=== PATIENT | female | born 1985 | race Caucasian/White ===

== ENCOUNTER 2021-08-16 07:53 | Emergency (ER) | payer OTHER ==
[~2021-08-16 07:53] MED LIST: AMOXICILLIN875 MG PO; BENTYL 20MG TAB20 MG PO; FLEXERIL 10 MG10 MG PO; IBUPROFEN800 MG PO; NAPROSYN500 MG PO; PHENERGAN 25 MG25 M1 PO; ZOFRAN4 MG PO
[2021-08-16 08:32] LABS: HEMOGLOBIN 15.2 gm/dl (12.3-15.3); RED BLOOD COUNT 5.27 M/UL (4.00-5.10); WHITE BLOOD COUNT 12.3 K/UL (4.5-11.0)
[2021-08-16 09:06] LABS: BUN/CREATININE RATIO 16 (0-10)
[2021-08-16] MEDS ORDERED: ONDANSETRON ODT4 MG PO (12:06)
== END 2021-08-16 12:14 | disposition home or self-care (01) ==
LOC: ER1 07:53
PROVIDERS: Nurse Practitioner
DX: R10.9 Unspecified abdominal pain (principal); R11.2 Nausea with vomiting, unspecified; Z88.2 Allergy status to sulfonamides; R10.813 Right lower quadrant abdominal tenderness; R10.814 Left lower quadrant abdominal tenderness; Z20.822 Contact with and (suspected) exposure to COVID-19
CPT/HCPCS: 0240U; 80053; 81001; 82150; 82550; 82553; 83690; 84484; 85025; 93005; 96374; 96375; 99284; J2270; J2405; J7030; Q9967

== ENCOUNTER 2021-09-20 21:53 | Emergency (ER) | payer OTHER ==
[~2021-09-20 21:53] MED LIST changes: +ONDANSETRON ODT4 MG PO
[2021-09-20 22:58] LABS: HEMOGLOBIN 14.4 gm/dl (12.3-15.3); RED BLOOD COUNT 4.88 M/UL (4.00-5.10); WHITE BLOOD COUNT 11.9 K/UL (4.5-11.0)
[2021-09-20 23:17] LABS: BUN/CREATININE RATIO 22 (0-10)
[2021-09-21] MEDS ORDERED: ONDANSETRON ODT4 MG SL (03:30)
[2021-09-21] MEDS ORDERED: TORADOL 10 MG T10 MG PO (03:30)
== END 2021-09-21 03:44 | disposition home or self-care (01) ==
LOC: ER1 21:53
PROVIDERS: Emergency Medicine
DX: G89.29 Other chronic pain (principal); R10.32 Left lower quadrant pain; E11.9 Type 2 diabetes mellitus without complications; Z88.2 Allergy status to sulfonamides; Z88.1 Allergy status to other antibiotic agents
CPT/HCPCS: 80053; 81001; 83690; 84703; 85025; 96372; 99284; J1885